=== PATIENT | female | born 1955 | race Caucasian/White ===

== ENCOUNTER → 2023-08-03 13:35 | Outpatient (REF) | payer MEDICARE, OTHER, SELFPAY | LOC: HWRAD 13:35 | PROVIDERS: ATTENDING PHYSICIAN Physician Assistant Medical | DX: R39.11 Hesitancy of micturition (principal) | CPT/HCPCS: 76770 ==

== ENCOUNTER → 2023-12-02 10:31 | Outpatient (REF) | payer MEDICARE, OTHER, SELFPAY | LOC: RAD 10:31 | PROVIDERS: ATTENDING PHYSICIAN Plastic Surgery Surgery of the Hand; FAMILY PHYSICIAN Physician Assistant Medical | DX: M25.532 Pain in left wrist (principal) | CPT/HCPCS: 73110; 76882 ==

== ENCOUNTER → 2024-01-19 09:56 | Outpatient (REF) | payer MEDICARE, OTHER, SELFPAY | LOC: PAVMRI 09:56 | PROVIDERS: ATTENDING PHYSICIAN Plastic Surgery Surgery of the Hand; FAMILY PHYSICIAN Physician Assistant Medical; OTHER PHYSICIAN Physician Assistant Surgical | DX: M25.532 Pain in left wrist (principal); M17.12 Unilateral primary osteoarthritis, left knee | CPT/HCPCS: 73221; 73721 ==

== ENCOUNTER → 2024-03-05 11:42 | Outpatient (REF) | payer MEDICARE, OTHER, SELFPAY | LOC: RAD 11:42 | PROVIDERS: ATTENDING PHYSICIAN Physician Assistant Surgical; FAMILY PHYSICIAN Physician Assistant Medical | DX: M53.3 Sacrococcygeal disorders, not elsewhere classified (principal) | CPT/HCPCS: 72170 ==

== ENCOUNTER → 2024-03-25 11:19 | Outpatient (REF) | payer MEDICARE, OTHER, SELFPAY | LOC: HWRAD 11:19 | PROVIDERS: ATTENDING PHYSICIAN Plastic Surgery Surgery of the Hand; FAMILY PHYSICIAN Physician Assistant Medical | DX: M19.032 Primary osteoarthritis, left wrist (principal); Z01.818 Encounter for other preprocedural examination | CPT/HCPCS: 71046 ==

== ENCOUNTER → 2024-08-26 11:55 | Outpatient (REF) | payer MEDICARE, OTHER, SELFPAY | LOC: RAD 11:55 | PROVIDERS: ATTENDING PHYSICIAN Plastic Surgery Surgery of the Hand; FAMILY PHYSICIAN Physician Assistant Medical | DX: M19.032 Primary osteoarthritis, left wrist (principal) | CPT/HCPCS: 71046 ==

== ENCOUNTER → 2024-12-07 10:12 | Outpatient (REF) | payer MEDICARE, OTHER, SELFPAY | LOC: RAD 10:12 | PROVIDERS: ATTENDING PHYSICIAN Obstetrics & Gynecology; FAMILY PHYSICIAN Physician Assistant Medical | DX: N31.9 Neuromuscular dysfunction of bladder, unspecified (principal); R33.9 Retention of urine, unspecified | CPT/HCPCS: 76770 ==

== ENCOUNTER → 2024-12-12 12:21 | Outpatient (REF) | payer MEDICARE, OTHER, SELFPAY | LOC: HWRAD 12:21 | PROVIDERS: ATTENDING PHYSICIAN Plastic Surgery Surgery of the Hand; FAMILY PHYSICIAN Physician Assistant Medical | DX: M19.022 Primary osteoarthritis, left elbow (principal) | CPT/HCPCS: 73200 ==

== ENCOUNTER → 2025-01-10 10:24 | Outpatient (REF) | payer MEDICARE, OTHER, SELFPAY | LOC: MRI 10:24 | PROVIDERS: ATTENDING PHYSICIAN Plastic Surgery Surgery of the Hand; FAMILY PHYSICIAN Physician Assistant Medical | DX: S59.912A Unspecified injury of left forearm, initial encounter (principal) | CPT/HCPCS: 73218 ==

== ENCOUNTER → 2025-02-22 11:52 | Outpatient (REF) | payer MEDICARE, OTHER, SELFPAY | LOC: RAD 11:52 | PROVIDERS: ATTENDING PHYSICIAN Physician Assistant | DX: Z01.818 Encounter for other preprocedural examination (principal) | CPT/HCPCS: 71046 ==

== ENCOUNTER → 2025-05-23 09:44 | Outpatient (REF) | payer MEDICARE, OTHER, SELFPAY | LOC: WDC 09:44 | PROVIDERS: ATTENDING PHYSICIAN Physician Assistant Medical | DX: N63.20 Unspecified lump in the left breast, unspecified quadrant (principal) | CPT/HCPCS: 76642; 77062; 77066 ==

== ENCOUNTER → 2025-05-29 13:40 | Outpatient (REF) | payer MEDICARE, OTHER, SELFPAY ==
[2025-05-29 14:45] LABS: Urine Character Cloudy (Clear)
[2025-05-29 15:11] LABS: Urine White Cell >100 /HPF (0-5)
== END ==
LOC: REG 13:40
PROVIDERS: ATTENDING PHYSICIAN Obstetrics & Gynecology; FAMILY PHYSICIAN Physician Assistant Medical
DX: N39.0 Urinary tract infection, site not specified (principal)
CPT/HCPCS: 81003; 81015; 87077; 87086